=== PATIENT | male | born 1955 | race Caucasian/White ===

== ENCOUNTER 2024-11-09 16:18 | Emergency (ER) | payer MEDICARE, SELFPAY ==
[2024-11-09 16:24] VITALS: BP 157/75; PULSE 86; TEMP 36.5; O2SAT 96; BMI 44.5
--- OUTSIDE RECORDS SUMMARY | 2024-11-09 16:54 | XMS_ITS | Encounter Summary ---
Author Organization [facility] Address [address] [facility] [place] [address] Care Team Providers Care Hospice Plan Administrator Name Role Phone Dangelo Rolon DO Unavailable [phone] Dangelo Rolon DO Primary Care Provider [phone] Dangelo Rolon DO Unavailable [phone] Yousif Morocho MD Unavailable [phone] Emliy Najera NP Unavailable Derek Marc MD Unavailable [phone] Jimbo Ratliff DPM Unavailable [phone] Dangelo Rolon DO Unavailable [phone] Arlene Gauthier STATION TENDER Unavailable [phone] Laron Fowler MD Primary Care Provider [phone] Encounter Details Date Type Department Care Team (Late st Contact Info) Description 01/15/2023 Orders Only [facility] [place] [facility] [address] [facility] [address] [place] [address] A, Unknown Practice [address] [place], [place] [address] Social History Tobacco Use Types Packs/Day Years Used Date Smoking Tobacco: Never Passive Smoke Exposure: Never Smokeless Tobacco: Never Alcohol Use Standard Drinks/Week Comments Yes 0 (1 standard drink = 0.6 oz pure alcohol) drinks alcohol 4 or more times a week Sex and Gender Information Value Date Recorded Sex Assigned at Male 07/31/2022 9:12 AM EDT Legal Sex Male 6:39 PM EDT Gender Identity Male 07/31/2022 9:12 AM EDT Sexual Orientation Straight 07/31/2022 9: 12 AM EDT COVID-19 Exposure Response Date Recorded In the last 10 days, have yo u been in contact with someone who was confirmed or suspected to have Coronavirus/COVID-19? No / Unsure 12/18/2022 10:05 AM EST documented as of this encounter Plan of Treatment Upcoming Encounters Date Type Department Care Team (Late st Contact Info) Description 11/14/2024 1:00 PM EDT Office Visit [facility] [facility] [address] [place] [address] Yousif Boyle, PA [address] [place] [address] 11/21/2024 9:50 AM EDT Office Visit [facility] [address] [facility] [address] Leo Forrest, DPM FACFAS [address] [facility] [place] [address] 03/09/2025 1:30 PM EST Office Visit [facility] [place] [facility] [address] [place] [address] documented as of this encounter Procedures Procedure Name Priority Date/Time Associated Diagnosis Comments SCANNED LABS Routine 01/14/2023 10:35 AM EST SCANNED LABS Routine 01/14/2023 10:26 AM EST documented in this encounter Results * SCANNED LABS (01/14/2023 10:35 AM EST) us Unknown Practice A LAB CHG PERFORMABLES Final Re sult * SCANNED LABS (01/14/2023 10:26 AM EST) us Unknown Practice A LAB CHG PERFORMABLES Final Re sult documented in this encounter Visit Diagnoses Not on filedocumented in this encounter Care Teams Hospice Plan Administrator Relationship Specialty Start Date End Date Dangelo Rolon DO [address] [place] [address] PCP - [facility] 05/10/22 02/09/24 Dangelo Rolon DO [address] [place] [address] PCP - General Internal Medicine 08/19/22 09/18/24 Dangelo Rolon DO [address] [place] [address] [facility] 12/10/2202/08 Dangelo Rolon DO [address] [place] [address] PCP - Medical [facility] 02/10/2402/08 Laron Fowler MD [address] [place] [address] PCP - General Internal Medicine 09/19/24 Yousif Morocho MD [address] Professional building 1 [place] [address] Referring Physician Rheumatology 03/05/23 Emily Najera NP [address] [place] [address] Referring Physician Family Medicine 03/05/23 Derek Marc MD [address] [place] [address] Referring Physician Internal Medicine 03/05/23 Jimbo Ratliff DPM [address] [facility] 5 [place] [address] Referring Physician Podiatry 03/05/23 Arlene Gauthier LSW [address] [facility] 230 [place] [address] Commercial Sewing Instructor Family Medicine 04/19/24 04/19/24 Dr. Jayden Zheng [facility] 03/05/23 documented as of this encounter
--- OUTSIDE RECORDS SUMMARY | 2024-11-09 16:55 | XMS_ITS | Encounter Summary ---
Author Organization [facility] Address [address] [place] [address] Care Team Providers Care Enamel Burner Name Role Phone Dangelo Rolon DO Unavailable [phone] Dangelo Rloon DO Primary Care Provider Yousif Morocho MD Unavailable Emily Najera NP Unavailable Derek Marc MD Unavailable [phone] Jimbo Ratliff DPM Unavailable Dangelo Rolon DO Unavailable [phone] Arlene Gauthier CATALOG SPECIALIST Unavailable [phone] Laron Fowler MD Primary Care Provider [phone] Reason for Visit * Reason Onset Date Comments Med Refill 05/11/2023 Encounter Details Date Type Department Care Team (Late st Contact Info) Description 05/11/2023 Refill [facility] [address] [facility] [address] [place] [address] Dangelo Rolon DO [address] [facility] [address] [place] [address] Social History Tobacco Use Types Packs/Day Years Used Date Smoking Tobacco: Former Cigarettes Q uit: 02/09/1998 Passive Smoke Exposure: Past Smokeless Tobacco: Never Alcohol Use Standard Drinks/Week Comments Yes 0 (1 standard drink = 0.6 oz pure alcohol) drinks alcohol 4 or more times a week AUDIT-C Answer Date Recorded Q1: How often do you have a drink containing alcohol? 4 or more times a week 03/05/2023 Q2: How many drinks containi ng alcohol do you have on a typical day when you are drinking? 1 or 2 Q3: How often do you have si x or more drinks on one occasion? Daily or almost daily 03/05/2023 PHQ-2 Answer Date Recorded Patient Health Questionnaire-2 Score 2 03/05/2023 Sex and Gender Information Value Date Recorded Sex Assigned at Male 07/31/2022 9:12 AM EDT Legal Sex Male 6:39 PM EDT Gender Identity Male 07/31/2022 9:12 AM EDT Sexual Orientation Straight 07/31/2022 9: 12 AM EDT documented as of this encounter Plan of Treatment Upcoming Encounters Date Type Department Care Team (Late st Contact Info) Description 11/14/2024 1:00 PM EDT Office Visit [facility] [address] [facility] [address] [place] [address] Yousif Boyle, PA [address] [place] [address] 11/21/2024 9:50 AM EDT Office [facility] [address] [place] [address] Leo Forrest, DPM FACFAS [address] [place] [address] 03/09/2025 1:30 PM EST Office Visit [facility] [address] [facility] 230 [place] [address] documented as of this encounter Visit Diagnoses Not on filedocumented in this encounter Additional Health Concerns Assessment Noted Time PHQ-9 Depression Total Score: 3 03/05/19 24 1:00 PM EST documented as of this encounter Care Teams Enamel Burner Relationship Specialty Start Date End Date Dangelo Rolon DO [address] [facility] [address] [place] [address] PCP - [facility] 05/10/22 02/09/24 Dangelo Rolon DO [address] [facility] 230 [place] [address] PCP - General Internal Medicine 08/19/22 09/18/24 Dangelo Rolon DO [address] [facility] 230 [place] [address] PCP - Medical [facility] 02/10/2402/08 Laron Fowler MD [address] [facility] 230 [place] [address] PCP - General Internal Medicine 09/19/24 Yousif Morocho MD [address] [facility] Professional building 1 [place] [address] Referring Physician Rheumatology 03/05/23 Emily Najera NP [facility] [facility] [place] [address] Referring Physician Family Medicine 03/05/23 Derek Marc MD [address] [facility] [place] [address] Referring Physician Internal Medicine 03/05/23 Jimbo Ratliff DPM [address] [place] [address] Referring Physician Podiatry 03/05/23 Arlene Gauthier, ABI [address] [facility] 230 [place] [address] Sample Cutter Family Medicine 04/19/24 04/19/24 Dr. Jayden Zheng [facility] 03/05/23 documented as of this encounter
--- OUTSIDE RECORDS SUMMARY | 2024-11-09 16:55 | XMS_ITS | Encounter Summary ---
Author Organization [facility] Address [address] [place] [facility] [place] [address] Care Team Providers Care Power System Dispatcher Name Role Phone Dangelo Rolon DO Unavailable [phone] Dangelo Rolon DO Primary Care Provider [phone] Dangelo Rolon DO Unavailable [phone] Yousif Morocho MD Unavailable [phone] Emily Najera NP Unavailable Derek Marc MD Unavailable [phone] Jimbo Ratliff DPM Unavailable [phone] Dangelo Rolon DO Unavailable [phone] Arlene Gauthier BANKRUPTCY LAW SPECIALIST Unavailable [phone] Laron Fowler MD Primary Care Provider [phone] Encounter Details Date Type Department Care Team (Late st Contact Info) Description 12/09/2022 Orders Only [facility] [place] [facility] [address] [facility] [address] [place] [address] A, Unknown Practice [address] [place], [place] [address] Social History Tobacco Use Types Packs/Day Years [...] Description 11/14/2024 1:00 PM EDT Office Visit [facility] [address] [place] [address] Yousif Boyle, PA [address] [facility] [place] [address] 11/21/2024 9:50 AM EDT Office Visit [facility] [address] [place] [address] Leo Forrest, DPM FACFAS [address] [facility] [place] [address] 03/09/2025 1:30 PM EST Office Visit [facility] [address] [facility] [address] [place] [address] documented as of this encounter Procedures Procedure Name Priority Date/Time Associated Diagnosis Comments COLONOSCOPY Routine 12/08/2022 1:13 PM EDT documented in this encounter Results * Colonoscopy (12/08/2022 1:13 PM EDT) Anatomical Region Laterality Modality Endoscopy us Unknown Practice A ENDOSCOPY PROCEDURE ORDERABLE S Final Result documented in this encounter Visit Diagnoses Not on filedocumented in this encounter Care Teams Power System Dispatcher Relationship Specialty Start Date End Date Dangelo Rolon DO [address] [place] [address] PCP - [facility] 05/10/22 02/09/24 Dangelo Rolon DO [address] [place] [address] PCP - General Internal Medicine 08/19/22 09/18/24 Dangelo Rolon DO [address] [facility] 230 [place] [address] [facility] 12/10/2202/08 Dangelo Rolon DO [address] [facility] 230 [place] [address] PCP - Medical [facility] 02/10/2402/08 Laron Fowler MD [address] [facility] 230 [place] [address] PCP - General Internal Medicine 09/19/24 Yousif Morocho MD [address] [facility] Professional building 1 [place] [address] Referring Physician Rheumatology 03/05/23 Emily Najera NP [address] [place] [address] Referring Physician Family Medicine 03/05/23 Derek Marc MD [address] [place] [address] Referring Physician Internal Medicine 03/05/23 Jimbo Ratliff DPM [address] [facility] 5 [place] [address] Referring Physician Podiatry 03/05/23 Arlene Gauthier, BANKRUPTCY LAW SPECIALIST [address] [facility] 230 [place] [address] Assistant Manager Of Operations Family Medicine 04/19/24 04/19/24 Dr. Jayden [facility]heng [facility] 03/05/23 documented as of this encounter
--- OUTSIDE RECORDS SUMMARY | 2024-11-09 16:55 | XMS_ITS | Encounter Summary ---
Author Organization [facility] Address [address] [facility] [place] [address] Care Team Providers Care Neighborhood Planner Name Role Phone Dangelo Rolon DO Unavailable [phone] Dangelo oRlon DO Primary Care Provider [phone] Dangelo Rolon DO Unavailable [phone] Dangelo Rolon DO Unavailable [phone] Yousif Morocho MD Unavailable Emily Najera NP Unavailable Derek Marc MD Unavailable [phone] Jimbo Ratliff DPM Unavailable [phone] Dangelo Rolon DO Unavailable [phone] Arlene Gauthier ZIG ZAG STITCHER Unavailable [phone] Laron Fowler MD Primary Care Provider [phone] Encounter Details Date Type Department Care Team (Late st Contact Info) Description 09/15/2022 Orders Only [facility] [place] [facility] [address] [facility] [address] [place] [address] A, Unknown Practice [address] [place] [address] Social History Tobacco Use Types Packs/Day Years Used Date Smoking Tobacco: Never Passive Smoke Exposure: Never Smokeless Tobacco: Never Alcohol Use Standard Drinks/Week Comments Not Currently 0 (1 standard drink = 0.6 oz pur e alcohol) caffeine: 2-3 cups/day Sex and Gender Information Value Date Recorded [...] suspected to have Coronavirus/COVID-19? No / Unsure 08/25/2022 7:35 AM EDT documented as of this encounter Plan of Treatment Upcoming Encounters Date Type Department Care Team (Late st Contact Info) Description 11/14/2024 1:00 PM EDT Office Visit [facility] [place] [facility] [address] [place] [address] Yousif Boyle, PA [address] [place] [address] 11/21/2024 9:50 AM EDT Office Visit [facility] [address] [facility] [place] [address] Leo Forrest, DPM FACFAS [address] [place] [address] 03/09/2025 1:30 PM EST Office Visit [facility] [place] [facility] [address] [place] [address] documented as of this encounter Procedures Procedure Name Priority Date/Time Associated Diagnosis Comments VASC US CAROTID ARTERY DUPLEX BILATERAL Routine 09/11/2022 9:05 AM EDT documented in this encounter Results * Vascular US carotid artery duplex bilateral (09/11/2022 9:05 AM EDT) Anatomical Region Laterality Modality Neck Ultrasound us Unknown Practice A IMG US PROCEDURES Final Resul t documented in this encounter Visit Diagnoses Not on filedocumented in this encounter Care Teams Neighborhood Planner Relationship Specialty Start Date End Date Dangelo Rolon DO [address] [place] [address] PCP - [facility] 05/10/22 02/09/24 Dangelo Rolon DO [address] [place] [address] PCP - General Internal Medicine 08/19/22 09/18/24 Dangelo Rolon DO [address] [place] [address] PCP - [employer] 09/09/22 Dangelo Rolon DO [address] [place] [address] PCP - [employer] 12/10/2202/08 Dangelo Rolon DO [address] [place] [address] PCP - Medical [facility] 02/10/2402/08 Laron Fowler MD [address] [place] [address] PCP - General Internal Medicine 09/19/24 Yousif Morocho MD [address] Professional building 1 [place] [address] Referring Physician Rheumatology 03/05/23 Emily Najera NP [address] [place] [address] Referring Physician Family Medicine 03/05/23 Derek Marc MD 12[address] [facility] [place] [address] Referring Physician Internal Medicine 03/05/23 Jimbo Ratliff DPM 3006 [facility] 5 [place] [address] Referring Physician Podiatry 03/05/23 Arlene Gauthier, ABI [address] [facility] 230 [place] [address] Spanish Lecturer Family Medicine 04/19/24 04/19/24 Dr. Jayden Zheng [facility] 03/05/23 documented as of this encounter
--- OUTSIDE RECORDS SUMMARY | 2024-11-09 16:55 | XMS_ITS | Encounter Summary ---
Author Organization [facility] Address [address] [place] [address] Care Team Providers Care Catcher Helper Name Role Phone Dangelo Rolon DO Primary Care Provider [phone] Yousif Morocho MD Unavailable Emily Najera NP Unavailable Derek Marc MD Unavailable [phone] Jimbo Ratliff DPM Unavailable Dangelo Rolon DO Unavailable [phone] Laron Fowler MD Primary Care Provider [phone] Encounter Details Date Type Department Care Team (Late st Contact Info) Description 04/20/2024 Orders Only [facility] [address] [facility] 230 [place] [address] Unallocated, Nomtony Núñez MD [address] [place] [address] Social History Tobacco Use Types Packs/Day Years [...] alcohol? 4 or more times a week 09/08/2023 Q2: How many drinks containi ng alcohol do you have on a typical day when you are drinking? 1 or 2 Frequency of Binge Drinking Not on file 08/11 PHQ-2 Answer Date Recorded Patient Health Questionnaire-2 Score 0 03/08/2024 Sex and Gender Information Value Date Recorded Sex Assigned at Male 07/31/2022 9:12 AM EDT Legal Sex Male 6:39 PM EDT Gender Identity Male 07/31/2022 9:12 AM EDT Sexual Orientation Straight 07/31/2022 9: 12 AM EDT documented as of this encounter Plan of Treatment Upcoming Encounters Date Type Department Care Team (Late st Contact Info) Description 11/14/2024 1:00 PM EDT Office [facility] [address] [facility] [address] [place] [address] Yousif Boyle, PA [address] [place] [address] 11/21/2024 9:50 AM EDT Office Visit [facility] [address] [facility] [place] [address] Leo Forrest, DPM FACFAS [address] [place] [address] 03/09/2025 1:30 PM EST Office Visit [facility] [address] [facility] 230 [place] [address] documented as of this encounter Procedures Procedure Name Priority Date/Time Associated Diagnosis Comments XR CHEST 1 VIEW Routine 04/20/2024 11:09 AM EDT documented in this encounter Results * XR chest 1 view (04/20/2024 11:09 AM EDT) Anatomical Region Laterality Modality Chest Radiographic Sharmila ging us [facility] Provider Unallocated IMG XR PROCEDURES F inal Result documented in this encounter Visit Diagnoses Not on filedocumented in this encounter Additional Health Concerns Assessment Noted Time PHQ-9 Depression Total Score: 0 03/08/19 1:00 PM EST documented as of this encounter Care Teams Catcher Helper Relationship Specialty Start Date End Date Dangelo Rolon DO [address] [place] [address] PCP - General Internal Medicine 08/19/22 09/18/24 Dangelo Rolon DO [address] [place] [address] PCP - Medical [facility] 02/10/2402/08 Laron Fowler MD [address] [place] [address] PCP - General Internal Medicine 09/19/24 Yousif Morocho MD [address] Professional building 1 [place] [address] Referring Physician Rheumatology 03/05/23 Emily Najera NP [address] [place] [address] Referring Physician Family Medicine 03/05/23 Derek Marc MD [address] [place] [address] Referring Physician Internal Medicine 03/05/23 Jimbo Ratliff DPM 3006 [facility] 5 [place] [address] Referring Physician Podiatry 03/05/23 Dr. Jayden Zheng [facility] 03/05/23 documented as of this encounter
--- OUTSIDE RECORDS SUMMARY | 2024-11-09 16:55 | XMS_ITS | Encounter Summary ---
Author Organization [facility] Address [address] [facility] [place] [address] Care Team Providers Care Branch Store Manager Name Role Phone Dangelo Rolon DO Primary Care Provider [phone] Yousif Morocho MD Unavailable Emily Najera NP Unavailable Derek Marc MD Unavailable [phone] Jimbo Ratliff DPM Unavailable [phone] Dangelo Rolon DO Unavailable [phone] Arlene Gauthier UNION ORGANIZER Unavailable [phone] Laron Fowler MD Primary Care Provider [phone] Encounter Details Date Type Department Care Team (Late st Contact Info) Description 03/10/2024 Orders Only [facility] [address] [facility] 230 [place] [address] Unallocated, Noms Provider, [address] [place] [address] Social History Tobacco Use Types Packs/Day Years [...] Office Visit [facility] [address] [facility] [address] [place] [address] Yousif Boyle, PA [address] [place] [address] 11/21/2024 9:50 AM EDT Office Visit [facility] [address] [facility] [address] Leo Forrest, DPM FACFAS [address] [place] [address] 03/09/2025 1:30 PM EST Office Visit [facility] [address] [facility] 230 [place] [address] documented as of this encounter Procedures Procedure Name Priority Date/Time Associated Diagnosis Comments CBC WITH AUTO DIFFERENTIAL Routine 02/13/2024 4:12 PM EST POCT SEDIMENTATION RATE, MANUAL Routine 02/13/2024 4:12 PM EST C-REACTIVE PROTEIN Routine 02/13/2024 4: 12 PM EST COMPREHENSIVE METABOLIC PANEL Routine 02/13/2024 4:12 PM EST documented in this encounter Results * POCT sedimentation rate docked device (02/13/2024 4:12 PM EST) Blood Venous blood specimen / Unknown us Noms Provider Unallocated MD POINT OF CARE TEST ENTER/EDIT ORDERABLES Final Result * C-reactive protein (02/13/2024 4:12 PM EST) Blood Venous blood specimen / Unknown us Noms Provider Unallocated MD LAB BLOOD ORDERABLE S Final Result * Comprehensive metabolic panel (02/13/2024 4:12 PM EST) Blood Venous blood specimen / Unknown us Noms Provider Unallocated MD LAB BLOOD ORDERABLE S Final Result * CBC auto differential (02/13/2024 4:12 PM EST) Blood Venous blood specimen / Unknown us Noms Provider Unallocated MD LAB BLOOD ORDERABLE S Final Result documented in this encounter Visit Diagnoses Not on filedocumented in this encounter Additional Health Concerns Assessment Noted Time PHQ-9 Depression Total Score: 0 03/08/19 25 1:00 PM EST documented as of this encounter Care Teams Branch Store Manager Relationship Specialty Start Date End Date Dangelo Rolon DO [address] [place] [address] PCP - General Internal Medicine 08/19/22 09/18/24 Dangelo Rolon DO [address] [place] [address] PCP - Medical [facility] 02/10/2402/08 Laron Fowler MD [address] [place] [address] PCP - General Internal Medicine 09/19/24 Yousif Morocho MD [address] [place] [address] Referring Physician Rheumatology 03/05/23 Emily Najera NP [address] [place] [address] Referring Physician Family Medicine 03/05/23 Derek Marc MD [address] [place] [address] Referring Physician Internal Medicine 03/05/23 Jimbo Ratliff DPM 3006 [facility] 5 [place] [address] Referring Physician Podiatry 03/05/23 Arlene Gauthier LSW [address] [facility] 230 [place] [address] Bowling Pin Refinisher Family Medicine 04/19/24 04/19/24 Dr. Jayden Zheng [facility] Op[facility] 03/05/23 documented as of this encounter
--- OUTSIDE RECORDS SUMMARY | 2024-11-09 16:55 | XMS_ITS | Encounter Summary ---
Author Organization [facility] Address [address] [place] [address] Care Team Providers Care Senior Game Developer Name Role Phone Dangelo Rolon DO Primary Care Provider [phone] Yousif Morocho MD Unavailable Emily Najera NP Unavailable Derek Marc MD Unavailable Jimbo Ratliff DPM Unavailable [phone] Dangelo Rolon DO Unavailable [phone] Laron Fowler MD Primary Care Provider [phone] Encounter Details Date Type Department Care Team (Late st Contact Info) Description 06/14/2024 Orders Only [facility] [address] [facility] [address] [place] [address] Unallocated, Noms MD [place] [address] [place] [address] Social History Tobacco Use Types Packs/Day Years [...] Office Visit [facility] [address] [facility] [address] [place] [address] Yousif Boyle, PA [address] [place] [address] 11/21/2024 9:50 AM EDT [facility] [address] [place] [address] Leo Forrest, DPM FACFAS [address] [place] [address] 03/09/2025 1:30 PM EST Office Visit [facility] [address] [facility] [address] [place] [address] documented as of this encounter Procedures Procedure Name Priority Date/Time Associated Diagnosis Comments X-RAY : FOOT, RIGHT Routine 06/14/2024 3:38 PM EDT documented in this encounter Results * X-RAY : FOOT, RIGHT (06/14/2024 3:38 PM EDT) Anatomical Region Laterality Modality Radiographic Sharmila ging us Noms Provider Unallocated MD DOUGLAS XR PROCEDURES F inal Result documented in this encounter Visit Diagnoses Not on filedocumented in this encounter Additional Health Concerns Assessment Noted Time PHQ-9 Depression Total Score: 0 03/08/19 1:00 PM EST documented as of this encounter Care Teams Senior Game Developer Relationship Specialty Start Date End Date Dangelo Rolon DO [address] [place] [address] PCP - General Internal Medicine 08/19/22 09/18/24 Dangelo Rolon DO [address] [place] [address] PCP - Medical [facility] 02/10/2402/08 Laron Fowler MD [address] [place] [address] PCP - General Internal Medicine 09/19/24 Yousif Morocho MD [address] [place] [address] Referring Physician Rheumatology 03/05/23 Emily Najera NP [address] [place] [address] Referring Physician Family Medicine 03/05/23 Derek Marc MD [address] [place] [address] Referring Physician Internal Medicine 03/05/23 Jimbo Ratliff DPM [address] [facility] 5 [place] [address] Referring Physician Podiatry 03/05/23 Dr. Jayden Zheng [facility] 03/05/23 documented as of this encounter
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
--- OUTSIDE RECORDS SUMMARY | 2024-11-09 16:55 | XMS_ITS | Encounter Summary ---
Author Organization [facility] Address [address] [facility] [place] [address] Care Team Providers Care Teamcenter Solution Architect Name Role Phone Dangelo Rolon DO Unavailable [phone] Dangelo Rolon DO Primary Care Provider [phone] Yousif Morocho MD Unavailable Emily Najera NP Unavailable Derek Marc MD Unavailable [phone] Jimbo Ratliff DPM Unavailable [phone] Dangelo Rolon DO Unavailable [phone] Arlene Gauthier BOATBUILDER SUPERVISOR Unavailable [phone] Laron Fowler MD Primary Care Provider [phone] Encounter Details Date Type Department Care Team (Late st Contact Info) Description 04/13/2023 Orders Only [facility] [address] [facility] [address] [place] [address] A, Unknown Practice [address] [place], [place] [id number] Social History Tobacco Use Types Packs/Day Years [...] Office Visit [facility] [address] [facility] [address] [place] [address] Yousif Boyle, PA [address] [facility] [place] [address] 11/21/2024 9:50 AM EDT Office Visit [facility] [address] [facility] [place] [place] [address] Leo Forrest, DPM FACFAS [address] [place] [address] 03/09/2025 1:30 PM EST Office Visit [facility] [address] [facility] [address] [place] [address] documented as of this encounter Procedures Procedure Name Priority Date/Time Associated Diagnosis Comments DIABETES EYE EXAM Routine 04/10/2023 10:50 AM EST documented in this encounter Results * Diabetes Eye Exam (04/10/2023 10:50 AM EST) us Unknown Practice A HEALTH MAINTENANCE Final Resu lt documented in this encounter Visit Diagnoses Not on filedocumented in this encounter Additional Health Concerns Assessment Noted Time PHQ-9 Depression Total Score: 3 03/05/19 24 1:00 PM EST documented as of this encounter Care Teams Teamcenter Solution Architect Relationship Specialty Start Date End Date Dangelo Rolon DO [address] [place] [address] PCP - [facility] 05/10/22 02/09/24 Dangelo Rolon DO [address] [place] [address] PCP - General Internal Medicine 08/19/22 09/18/24 Dangelo Rolon DO [address] [facility] [address] [place] [address] PCP - Medical [facility] 02/10/2402/08 Laron Fowler MD [address] [facility] [address] [place] [address] PCP - General Internal Medicine 09/19/24 Yousif Morocho MD [address] [facility] Professional [address] [place] [address] Referring Physician Rheumatology 03/05/23 Emily Najera NP [address] [place] [address] Referring Physician Family Medicine 03/05/23 Derek Marc MD [address] [place] [address] Referring Physician Internal Medicine 03/05/23 Jimbo Ratliff DPM [address] [address] Referring Physician Podiatry 03/05/23 Arlene Gauthier, ABI [address] [place] [address] Road Supervisor Of Engines Family Medicine 04/19/24 04/19/24 Dr. [place]den [facility] 03/05/23 documented as of this encounter
--- OUTSIDE RECORDS SUMMARY | 2024-11-09 16:55 | XMS_ITS | Encounter Summary ---
Author Organization [facility] Address [address] [facility] [place] [address] Care Team Providers Care Attraction Attendant Name Role Phone Dangelo Rolon DO Unavailable [phone] Dangelo Rolon DO Primary Care Provider [phone] Yousif Morocho MD Unavailable [phone] Emily Najera NP Unavailable Derek Marc MD Unavailable [phone] Jimbo Ratliff DPM Unavailable [phone] Dangelo Rolon DO Unavailable [phone] Arlene Gauthier TUB WASH OPERATOR Unavailable [phone] Laron Fowler MD Primary Care Provider [phone] Encounter Details Date Type Department Care Team (Late st Contact Info) Description 03/16/2023 Orders Only [facility] [address] [facility] [address] [place] [address] A, Unknown Practice [address] [place], [place] [address] Social History Tobacco Use Types Packs/Day Years [...] [address] [facility] [address] [place] [address] Yousif Boyle, PA [address] [facility] [place] [address] 11/21/2024 9:50 AM EDT Office Visit [facility] [place] [facility] [address] [facility] [place] [address] Leo Forrest, DPM FACFAS [address] [place] [address] 03/09/2025 1:30 PM EST Office Visit [facility] [address] [facility] [address] [place] [address] documented as of this encounter Procedures Procedure Name Priority Date/Time Associated Diagnosis Comments DIABETES EYE EXAM Routine 08/16/2022 8:20 AM EDT documented in this encounter Results * Diabetes Eye Exam (08/16/2022 8:20 AM EDT) us Unknown Practice A HEALTH MAINTENANCE Final Resu lt documented in this encounter Visit Diagnoses Not on filedocumented in this encounter Additional Health Concerns Assessment Noted Time PHQ-9 Depression Total Score: 3 03/05/19 24 1:00 PM EST documented as of this encounter Care Teams Attraction Attendant Relationship Specialty Start Date End Date Dangelo Rolon DO [address] [place] [address] PCP - [facility] 05/10/22 02/09/24 Dangelo Rolon DO [address] [facility] [address] [place] [address] PCP - General Internal Medicine 08/19/22 09/18/24 Dangelo Rolon DO [address] [facility] [address] [place] [address] PCP - Medical [facility] 02/10/2402/08 Laron Fowler MD [address] [facility] [address] [place] [address] PCP - General Internal Medicine 09/19/24 Yousif Morocho MD [address] [facility] Professional [address] [place] [address] Referring Physician Rheumatology 03/05/23 Emily Najera NP [address] [place] [address] Referring Physician Family Medicine 03/05/23 Derek Marc MD [address] [place] [address] Referring Physician Internal Medicine 03/05/23 Jimbo Ratliff DPM [address] [address] Referring Physician Podiatry 03/05/23 Arlene Gauthier, TUB WASH OPERATOR [address] [place] [address] Gardening Manager Family Medicine 04/19/24 04/19/24 Dr. [place]den [facility] 03/05/23 documented as of this encounter
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
--- NOTE | 2024-11-09 16:59 | CT_ITS ---
[address] [address] Patient Name: SCHUYLER AGUILAR MRN: [id number] date: 1955 Sex: M Assigned Patient Location: ER Current Patient Location: .[facility] Accession/Order Number: [id number] Exam Date: 11/09/2024 17:28 Report Date: 11/09/2024 17:57 At the request of: DEE DEE DEAN MD Procedure: CT cervical spine wo con Unenhanced head CT TECHNIQUE: Contiguous axial imaging of the head. The CT exam was performed using one or more the following dose reduction techniques: Automated exposure control, adjustment of the MA and/or Kv according to patient size, or use of the iterative reconstruction technique. COMPARISON: None HISTORY: Head injury. Fell. Right orbital injury. VENTRICLES: Within normal limits ATROPHY: Mild atrophy BRAIN PARENCHYMA: Decreased density of the white matter is most consistent with chronic small vessel disease. HEMORRHAGE: None HERNIATION: No mass effect or herniation INFARCTION: No recent vascular distribution infarction is seen. EXTRA-AXIAL FLUID COLLECTIONS None MIDBRAIN: Unremarkable LYNN: Unremarkable MEDULLA: Unremarkable SINUSES: Unremarkable ORBITS: Grossly unremarkable MASTOIDS: Unremarkable BONY STRUCTURES Intact ADDITIONAL FINDINGS: CT Cervical Spine withoutcontrast TECHNIQUE: Axial imaging with 2-D and 3-D reconstruction. The CT exam was performed using one or more the following dose reduction techniques: Automated exposure control, adjustment of the MA and/or Kv according to patient size, or use of the iterative reconstruction technique. COMPARISON: None POST SURGERY CHANGES: None BONY ALIGNMENT: Adequate BONY SPINAL CANAL: Patent central bony canal FRACTURE: None BONY LESIONS: None SOFT TISSUES: Unremarkable DEGENERATIVE CHANGES: Extensive C5-6 degeneration. LUNG APICES: Unremarkable ADDITIONAL FINDINGS: CT Facial Bones without contrast TECHNIQUE: Axial imaging with 2-D reconstruction. The CT exam was performed using one or more the following dose reduction techniques: Automated exposure control, adjustment of the MA and/or Kv according to patient size, or use of the iterative reconstruction technique. COMPARISON: None FRACTURES: None BONY LESIONS: None ORBITS: Unremarkable SINUSES: The sinuses are well pneumatized. SOFT TISSUES: No focal soft tissue abnormality identified. ADDITIONAL FINDINGS: Atherosclerosis of carotid bifurcations. CT/CT head/brain wo con IMPRESSION: No acute findings of the head, cervical spine or facial bones.. Impression dictated by: Dangelo Temple M.D. 11/09/2024 5:57 PM Dictation Location: [place] [address] Electronically authenticated by: [id number] Y Date: 11/09/2024 17:57
--- NOTE | 2024-11-09 17:05 | CT_ITS ---
[address] [address] Patient Name: SCHUYLER AGUILAR MRN: [id number] date: 1955 Sex: M Assigned Patient Location: ER Current Patient Location: .[facility] Accession/Order Number: [id number] Exam Date: 11/09/2024 17:28 Report Date: 11/09/2024 17:57 At the request of: DEE DEE DEAN MD Procedure: CT cervical spine wo con Unenhanced head CT TECHNIQUE: Contiguous axial imaging of the head. The CT exam was performed using one or more the following dose reduction techniques: Automated exposure control, adjustment of the MA and/or Kv according to patient size, or use of the iterative reconstruction technique. COMPARISON: None HISTORY: Head injury. Fell. Right orbital injury. VENTRICLES: Within normal limits ATROPHY: Mild atrophy BRAIN PARENCHYMA: Decreased density of the white matter is most consistent with chronic small vessel disease. HEMORRHAGE: None HERNIATION: No mass effect or herniation INFARCTION: No recent vascular distribution infarction is seen. EXTRA-AXIAL FLUID COLLECTIONS None MIDBRAIN: Unremarkable LYNN: Unremarkable MEDULLA: Unremarkable SINUSES: Unremarkable ORBITS: Grossly unremarkable MASTOIDS: Unremarkable BONY STRUCTURES Intact ADDITIONAL FINDINGS: CT Cervical Spine withoutcontrast TECHNIQUE: Axial imaging with 2-D and 3-D reconstruction. The CT exam was performed using one or more the following dose reduction techniques: Automated exposure control, adjustment of the MA and/or Kv according to patient size, or use of the iterative reconstruction technique. COMPARISON: None POST SURGERY CHANGES: None BONY ALIGNMENT: Adequate BONY SPINAL CANAL: Patent central bony canal FRACTURE: None BONY LESIONS: None SOFT TISSUES: Unremarkable DEGENERATIVE CHANGES: Extensive C5-6 degeneration. LUNG APICES: Unremarkable ADDITIONAL FINDINGS: CT Facial Bones without contrast TECHNIQUE: Axial imaging with 2-D reconstruction. The CT exam was performed using one or more the following dose reduction techniques: Automated exposure control, adjustment of the MA and/or Kv according to patient size, or use of the iterative reconstruction technique. COMPARISON: None FRACTURES: None BONY LESIONS: None ORBITS: Unremarkable SINUSES: The sinuses are well pneumatized. SOFT TISSUES: No focal soft tissue abnormality identified. ADDITIONAL FINDINGS: Atherosclerosis of carotid bifurcations. CT/CT facial bones wo con IMPRESSION: No acute findings of the head, cervical spine or facial bones.. Impression dictated by: Dangelo Temple M.D. 11/09/2024 5:57 PM Dictation Location: [place] [address] Electronically authenticated by: [id number] Y Date: 11/09/2024 17:57
[2024-11-09] MEDS: DIPHTH,PERTUSS(ACELL),TET VAC 0.5 ML SYRINGE IM (17:51)
[2024-11-09] MEDS: BACITRACIN 0.9 GM PACKET 1 PACKET TOPICAL (17:51)
--- NOTE | 2024-11-09 18:06 | ED.FALL1 ---
HPI HPI - Fall General Chief Complaint: Fall Stated Complaint: FALL HEAD INJURY Time Seen by Provider: 11/09/24 16:44 Source: patient Mode of arrival: walk-in Limitations: no limitations History of Present Illness HPI Narrative: The patient presents today after he tripped and fell forward, he apparently had the his glasses on that apparently pushed on his face and injured just above his right eye, there was no poking to the eye directly and there is no blurry vision or any pain at the moment The patient is a able to see as baseline when using his glasses There was no loss of consciousness no head injury and that patient face hit the floor Related Data Home Medications ?Medication ?Instructions ?Recorded ?Confirmed aspirin 325 mg capsule 325 mg PO DAILY 11/09/24 11/09/24 Previous Rx's ?Medication ?Instructions ?Recorded bacitracin 500 unit/gram topical 1 applic topical BID #14 grams 11/09/24 ointment Allergies Allergy/AdvReac Type Severity Reaction Status Date / Time atropine (From Lomotil) Allergy Severe Hives Verified 11/09/24 16:23 diphenoxylate (From Lomotil) Allergy Severe Hives Verified 11/09/24 16:23 Opioid HPI Opioid Management Most Recent Pain and Opioid Data: Last Pain Scale 2 11/09/24, 16:25 Review of Systems ROS Status of ROS 10 or more systems reviewed and unremarkable except as noted in history and below PFSH PFSH Social History Little interest or pleasure in doing things: not at all Feeling down, depressed, or hopeless: not at all Exam Narrative Exam Narrative: Nurses notes and vital signs reviewed and patient is not hypoxic. General: Well-appearing and in no apparent distress. Skin: Warm, dry, no pallor noted. No rash. Head: Normocephalic, the patient had no trauma to the head itself but the patient have some abrasion above the right eye and just below the right eyelid Neck: Supple, non-tender. Eye: Pupils are equal, round and EOMI. No scleral icterus. Abrasion just above the right eyebrow and just below the right eyelid that are measuring almost half a centimeter very superficial no puncture wound and the conjunctiva is normal Cardiovascular: Regular Rate and Rhythm without murmur, gallop or rub. Respiratory: No accessory muscle use or respiratory distress. Lungs are clear to auscultation, no wheezing, rales or rhonchi Chest Wall: no tenderness Back: No midline thoracic or lumbar vertebral tenderness. No CVA tenderness Musculoskeletal: normal ROM, no calf or popliteal tenderness, no lower extremity edema/swelling GI: Abdomen is soft, non-distended. Normal bowel sounds. No masses appreciated. No tenderness to palpation. No rebound, guarding, or rigidity noted. Neurological: A&O x4. No cranial nerve dysfunction observed. No truncal ataxia. Moves all extremities. Sensation intact. Psychiatric: Cooperative and interactive. Normal mood and affect. Constitutional Vital Signs, click to edit/add: Last Vital Signs Temp 97.7 F 11/09/24 16:24 Pulse 86 11/09/24 16:24 Resp 20 11/09/24 16:24 BP 157/75 H 11/09/24 16:24 Pulse Ox 96 11/09/24 16:24 Course Vital Signs Vital signs: Vital Signs Temperature 97.7 F 11/09/24 16:24 Pulse Rate 86 11/09/24 16:24 Respiratory Rate 20 11/09/24 16:24 Blood Pressure 157/75 H 11/09/24 16:24 Pulse Oximetry 96 11/09/24 16:24 Temperature 97.7 F 11/09/24 16:24 Pulse Rate 86 11/09/24 16:24 Respiratory Rate 20 11/09/24 16:24 Blood Pressure 157/75 H 11/09/24 16:24 Pulse Oximetry 96 11/09/24 16:24 MDM - Fall MDM Narrative Medical decision making narrative: CT of the patient head as well as cervical and CT of the facial bones showed no acute pathology Patient provided with a tetanus booster Bacitracin applied to the abrasion and I did explain to the patient that ice treatment is good for the next 24 to 48 hours to avoid any further swelling Monitoring symptoms after head injury including headache nausea vomiting or any dizziness the patient to come back to the ER The patient is to follow up with primary care physician in next 2-3 days or to return to the emergency department should any of the signs or symptoms worsen or new symptoms develop. The patient agrees with the following Diagnosis and Treatment plan and the patient will be discharged home. Discharge Plan Discharge Chief Complaint: Fall Clinical Impression: Fall, Contusion of face Patient Disposition: Home, Self-Care Time of Disposition Decision: 18:07 Condition: Good Prescriptions / Home Meds: New bacitracin 500 unit/gram ointment 1 applic topical BID Qty: 14 0RF No Action aspirin 325 mg capsule 325 mg PO DAILY Print Language: Cameroonian Instructions: Contusion in Adults (ED), Facial Contusion (ED) Referrals: Physician,Non-Staff, MD [Primary Care Provider] - 1 week Discharge Date/Time: 11/09/24 18:23
== END 2024-11-09 18:23 | disposition home or self-care (01) ==
PROVIDERS: Emergency Provider Emergency Medicine
DX: S00.83XA Contusion of other part of head, initial encounter (principal); S00.211A Abrasion of right eyelid and periocular area, initial encounter; W01.0XXA Fall on same level from slipping, tripping and stumbling without subsequent striking against object, initial encounter; Z23 Encounter for immunization
CPT/HCPCS: 70450; 70486; 72125; 76376; 90471; 90715; 99284